=== PATIENT | female | born 1940 | race Caucasian/White ===

== ENCOUNTER 2016-10-08 12:31 | Day surgery (SDC) | payer OTHER ==
--- NOTE | ~2016-10-08 | EGD ---
EGD REPORT [facility] [address] [id number] NAME: MICHELLE SANTIAGO : [birth year] STATUS : REG [facility] [place] PAT#: [id number] AGE: 76 ADM/REG DATE : 10/08/16 MR#: [id number] REPORT SERV DATE: 10/08/16 DICTATED BY: CINDI HU DATE: 10/08/16 REPORT STATUS : Draft [facility]ANSCRIBED [facility]: [facility] DATE: 10/08/16 Endoscopy Center Patient Name: Michelle Santiago Date of : 1940 Attending MD: CINDI HU MD Procedure Date No Time: 10/08/2016 Procedure: Colonoscopy Indications: Iron deficiency anemia, Last colonoscopy remote past Referring MD: EVELYN BOWLING MD Medicines: See the Anesthesia note for documentation of the administered medications Complications: No immediate complications. Procedure: Pre-Anesthesia Assessment: - ASA Grade Assessment: III - A patient with severe systemic disease. After I obtained informed consent, the scope was passed under direct vision. Throughout the procedure, the patient's blood pressure, pulse, and oxygen saturations were monitored continuously. The PCF [id number] was introduced through the anus and advanced to the cecum, identified by appendiceal orifice and ileocecal valve. The GIF H190 [id number] was introduced through the and advanced to. The colonoscopy was technically difficult and complex due to Fixed sigmoid colon. Successful completion of the procedure was aided by withdrawing the scope and replacing with the adult endoscope. The patient tolerated the procedure well. The quality of the bowel preparation was adequate. Findings: The perianal and digital rectal examinations were normal. Internal hemorrhoids were found during retroflexion and were small. Diverticula were found in the sigmoid colon. Polyp v inverted diverticulum in descending colon, Biopsies were taken with a cold forceps for histology. Impression: - Internal hemorrhoids. - Diverticulosis in the sigmoid colon. - Polyp v inverted diverticulum in descending colon Recommendation: - Patient has a contact number available for emergencies. The signs and symptoms of potential delayed complications were discussed with the patient. Return to normal activities tomorrow. Written discharge instructions were provided to the patient. EGD REPORT [address] [address] NAME: MICHELLE SANTIAGO : [birth year] STATUS : REG [facility] [place] PAT#: [id number] AGE: 76 ADM/REG DATE : 10/08/16 MR#: [id number] REPORT SERV DATE: 10/08/16 DICTATED BY: CINDI HU DATE: 10/08/16 REPORT STATUS : Draft TRANSCRIBED BY: [employer] DATE: 10/08/16 - Regular diet. - Continue present medications. - Repeat colonoscopy for surveillance based on pathology results. - FOR YOUR BIOPSY RESULTS: Please go to [email or web address] and register to receive your results via the portal. Your biopsy results will be posted there in about 7 to 10 days. IF you do not see result in 10 days, call office. Procedure Code(s): --- Professional --- 60627, Colonoscopy, flexible, proximal to splenic flexure; with biopsy, single or multiple Diagnosis Code(s): --- Professional --- K64.8, Other hemorrhoids K57.30, Diverticulosis of large intestine without perforation or abscess without bleeding D50.9, Iron deficiency anemia, unspecified CPT copyright 2013 [employer]. All rights reserved. The codes documented in this report are preliminary and upon service unit operator oil well review may be revised to meet current compliance requirements. Cidni Hu MD CINDI HU MD 10/08/2016 2:11 PM This report has been signed electronically. Number of Addenda: 0 Note Initiated On: 10/08/2016 1:32 PM Scope Withdrawal Time 0 hours 7 minutes 42 seconds [id number] [id number]
--- NOTE | ~2016-10-08 | EGD ---
EGD REPORT [facility] [address] [address] NAME: MICHELLE SANTIAGO : [birth year] [place]US : [place] [facility] [place] [id number] AGE: 76 ADM/REG DATE : 10/08/16 MR#: [id number] REPORT SERV DATE: 10/08/16 DICTATED BY: CINDI HU DATE: 10/08/16 REPORT STATUS : Draft [facility]: [facility] DATE: 10/08/16 Endoscopy Center Patient Name: Michelle Santiago Date of : 1940 Attending MD: CINDI HU MD Procedure Date No Time: 10/08/2016 Procedure: Upper GI endoscopy Indications: Epigastric abdominal pain, Iron deficiency anemia Referring MD: EVELYN BOWLING MD Medicines: See the Anesthesia note for documentation of the administered medications Complications: No immediate complications. Procedure: Pre-Anesthesia Assessment: - ASA Grade Assessment: III - A patient with severe systemic disease. After obtaining informed consent, the endoscope was passed under direct vision. Throughout the procedure, the patient's blood pressure, pulse, and oxygen saturations were monitored continuously. The GIF H190 [id number] was introduced through the mouth, and advanced to the second part of duodenum. The upper GI endoscopy was accomplished without difficulty. The patient tolerated the procedure well. Findings: The 2nd part of the duodenum was normal. Biopsies were taken with a cold forceps for histology. Erythematous mucosa was found in the duodenal bulb. Mild inflammation was found in the gastric antrum. Biopsies were taken with a cold forceps for histology. The cardia and gastric fundus were normal on retroflexion. A 3 cm hiatus hernia was present. 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 The maximum longitudinal extent of these mucosal changes was 3 cm in length. Biopsies were taken with a cold forceps for histology. Distal esophageal ulcers x 2 Impression: - Normal 2nd part of the duodenum. Biopsied. - Erythematous duodenopathy. - Gastritis. Biopsied. - Hiatus hernia. 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 Biopsied. EGD REPORT [address] [address] NAME: MICHELLE SANTIAGO : [birth year] STATUS : [place] [facility] [place]#: [id number] AGE: 76 ADM/REG DATE : 10/08/16 MR#: [id number] REPORT SERV DATE: 10/08/16 DICTATED BY: CINDI HU DATE: 10/08/16 REPORT STATUS : Draft TRANSCRIBED BY: [employer] DATE: 10/08/16 Recommendation: - Patient has a contact number available for emergencies. The signs and symptoms of potential delayed complications were discussed with the patient. Return to normal activities tomorrow. Written discharge instructions were provided to the patient. - Regular diet. - Stop Pepcid Start Protonix 40mg every am - FOR YOUR BIOPSY RESULTS: Please go to [email or web address] and register to receive your results via the portal. Your biopsy results will be posted there in about 7 to 10 days. IF you do not see result in 10 days, call office. - Return to my office in 6 weeks. Procedure Code(s): --- Professional --- 63229, Esophagogastroduodenoscopy, flexible, transoral; with biopsy, single or multiple Diagnosis Code(s): --- Professional --- K22.9, Disease of esophagus, unspecified K31.89, Other diseases of stomach and duodenum K29.70, Gastritis, unspecified, without bleeding K44.9, Diaphragmatic hernia without obstruction or gangrene R10.13, Epigastric pain D50.9, Iron deficiency anemia, unspecified CPT copyright 2013 [employer]. All rights reserved. The codes documented in this report are preliminary and upon immigration consultant review may be revised to meet current compliance requirements. Cindi Hu MD CINDI HU MD 10/08/2016 1:49 PM This report has been signed electronically. Number of Addenda: 0 Note Initiated On: 10/08/2016 1:37 PM Scope Withdrawal Time 0 hours 0 minutes 0 seconds [address] [place] [address]
[~2016-10-08 12:31] MED LIST: ASAB PO; AUG500 PO; CYANO1000T PO; FIBER PO; IRON PO; MULTIPLE VIT PO; PEP20 PO; PROAM25 PO; ZOL100 PO
== END 2016-10-08 23:59 | disposition home or self-care (01) ==
LOC: DMU 12:31
PROVIDERS: Internal Medicine Gastroenterology
PROC: 0DB38ZZ Excision of Lower Esophagus, Via Natural or Artificial Opening Endoscopic (ICD-10-PCS; 2016-10-08)
PROC: 0DB68ZZ Excision of Stomach, Via Natural or Artificial Opening Endoscopic (ICD-10-PCS; 2016-10-08)
PROC: 0DBM8ZX Excision of Descending Colon, Via Natural or Artificial Opening Endoscopic, Diagnostic (ICD-10-PCS; principal; 2016-10-08 14:00)
PROC: 0DB98ZZ Excision of Duodenum, Via Natural or Artificial Opening Endoscopic (ICD-10-PCS; 2016-10-08 14:00)
DX: K63.5 Polyp of colon (principal); K21.0 Gastro-esophageal reflux disease with esophagitis; K64.8 Other hemorrhoids; K57.92 Diverticulitis of intestine, part unspecified, without perforation or abscess without bleeding; K57.30 Diverticulosis of large intestine without perforation or abscess without bleeding; I49.9 Cardiac arrhythmia, unspecified; F41.9 Anxiety disorder, unspecified; R10.13 Epigastric pain; F32.9 Major depressive disorder, single episode, unspecified; G47.30 Sleep apnea, unspecified; I95.9 Hypotension, unspecified; D50.9 Iron deficiency anemia, unspecified; K22.9 Disease of esophagus, unspecified; K31.89 Other diseases of stomach and duodenum; K29.70 Gastritis, unspecified, without bleeding; K44.9 Diaphragmatic hernia without obstruction or gangrene; Z87.891 Personal history of nicotine dependence; Z90.89 Acquired absence of other organs; Z98.890 Other specified postprocedural states; Z79.899 Other long term (current) drug therapy; Z79.82 Long term (current) use of aspirin
CPT/HCPCS: 88305